=== PATIENT | male | born 1940 | race Caucasian/White ===

== ENCOUNTER 2021-09-26 09:24 | Outpatient (CLI) | payer OTHER, SELFPAY ==
[2021-09-26 13:50] LABS: Chloride* 100 mmol/L (96-114); Potassium* 3.9 mmol/L (3.6-5.1); Sodium* 138 mmol/L (135-149)
[2021-09-26 13:54] LABS: Blood Urea Nitrogen* 31 mg/dL (7-30); Calcium* 9.2 mg/dL (8.4-10.6); Carbon Dioxide* 33 mmol/L (20-32); Cholesterol* 163 mg/dL (90-199); Creatinine* 1.2 mg/dL (0.5-1.5); Estimated Glomerular Filt Rate 62 ml/min; Glucose* 180 mg/dL (60-115); HDL Cholesterol* 51 mg/dL (>=40); LDL Cholesterol Calculated 85 mg/dL (<100); Triglycerides* 134 mg/dL (40-149)
[2021-09-26 14:24] LABS: PSA Diagnostic* 0.07 ng/mL (0.10-4.00)
== END 2021-09-26 09:25 | disposition home or self-care (01) ==
PROVIDERS: PCP Family Medicine; Visit Provider Family Medicine
DX: E13.9 Other specified diabetes mellitus without complications (principal); C61 Malignant neoplasm of prostate; E78.5 Hyperlipidemia, unspecified; I10 Essential (primary) hypertension
CPT/HCPCS: 80048; 80061; 84153

== ENCOUNTER 2022-03-15 14:07 | Outpatient (CLI) | payer OTHER, SELFPAY ==
[2022-03-15 17:56] LABS: Chloride* 102 mmol/L (96-114); Potassium* 3.7 mmol/L (3.6-5.1); Sodium* 139 mmol/L (135-149)
[2022-03-15 17:59] LABS: Carbon Dioxide* 31 mmol/L (20-32); Creatinine* 1.4 mg/dL (0.5-1.5); Estimated Glomerular Filt Rate 51 ml/min
[2022-03-15 18:00] LABS: Blood Urea Nitrogen* 41 mg/dL (7-30); Calcium* 9.3 mg/dL (8.4-10.6); Glucose* 151 mg/dL (60-115)
[2022-03-16 17:54] LABS: PSA Diagnostic* 0.11 ng/mL (0.10-4.00)
== END 2022-03-15 14:08 | disposition home or self-care (01) ==
PROVIDERS: PCP Family Medicine; Visit Provider Family Medicine
DX: I10 Essential (primary) hypertension (principal); E13.9 Other specified diabetes mellitus without complications; Z12.5 Encounter for screening for malignant neoplasm of prostate
CPT/HCPCS: 80048; 84153

== ENCOUNTER 2022-06-13 11:54 | Outpatient (CLI) | payer OTHER, SELFPAY | END 2022-06-13 11:55 | disposition home or self-care (01) | PROVIDERS: PCP Family Medicine; Visit Provider Emergency Medicine | DX: R53.1 Weakness (principal); N18.9 Chronic kidney disease, unspecified; R68.83 Chills (without fever); M79.10 Myalgia, unspecified site | CPT/HCPCS: 80076; 86140; 87040 ==

== ENCOUNTER 2022-12-04 08:21 | Outpatient (CLI) | payer OTHER, SELFPAY | END 2022-12-04 08:22 | disposition home or self-care (01) | PROVIDERS: PCP Family Medicine; Visit Provider Family Medicine | DX: E78.5 Hyperlipidemia, unspecified (principal); I10 Essential (primary) hypertension; N18.9 Chronic kidney disease, unspecified; E13.9 Other specified diabetes mellitus without complications; C61 Malignant neoplasm of prostate | CPT/HCPCS: 80061; 83036; 84153 ==

== ENCOUNTER 2023-12-16 09:33 | Outpatient (CLI) | payer OTHER, SELFPAY | END 2023-12-16 09:34 | disposition home or self-care (01) | PROVIDERS: PCP Family Medicine; Visit Provider Family Medicine | DX: I10 Essential (primary) hypertension (principal); E78.5 Hyperlipidemia, unspecified; C61 Malignant neoplasm of prostate | CPT/HCPCS: 80061; 84153 ==

== ENCOUNTER 2024-10-06 09:34 | Outpatient (CLI) | payer OTHER, SELFPAY | END 2024-10-06 09:35 | disposition home or self-care (01) | PROVIDERS: PCP Family Medicine; Visit Provider Family Medicine | DX: E78.00 Pure hypercholesterolemia, unspecified (principal); E13.65 Other specified diabetes mellitus with hyperglycemia; C61 Malignant neoplasm of prostate | CPT/HCPCS: 80048; 80061; 84153 ==

== ENCOUNTER 2024-10-18 12:46 | Outpatient (CLI) | payer OTHER, SELFPAY | END 2024-10-18 12:47 | disposition home or self-care (01) | LOC: LKVREF 12:47 | PROVIDERS: PCP Family Medicine; Visit Provider Nurse Practitioner Family | DX: I10 Essential (primary) hypertension (principal); R53.83 Other fatigue | CPT/HCPCS: 86618 ==

== ENCOUNTER 2025-03-01 10:31 | Outpatient (CLI) | payer OTHER, SELFPAY | END 2025-03-01 10:32 | disposition home or self-care (01) | LOC: LKVREF 10:32 | PROVIDERS: PCP Family Medicine; Visit Provider Family Medicine | DX: I12.9 Hypertensive chronic kidney disease with stage 1 through stage 4 chronic kidney disease, or unspecified chronic kidney disease (principal); N18.2 Chronic kidney disease, stage 2 (mild) | CPT/HCPCS: 80048 ==